=== PATIENT | male | born 2000 | race Caucasian/White ===

== ENCOUNTER 2024-12-30 17:18 | Emergency (ER) | payer BC, MEDICAID ==
[~2024-12-30] VITALS: Ht 175.3 cm; Wt 77.3 kg
[2024-12-30 17:21] VITALS: BP 113/41; PULSE 70; RESP 15; TEMP 97.6; O2SAT 100
== END 2024-12-30 19:30 | disposition home or self-care (01) ==
LOC: ER 17:19
DX: S82.291A Other fracture of shaft of right tibia, initial encounter for closed fracture (principal); X58.XXXA Exposure to other specified factors, initial encounter; Y93.89 Activity, other specified; Y92.89 Other specified places as the place of occurrence of the external cause; Y99.8 Other external cause status
CPT/HCPCS: 99281; 99282; A6449

== ENCOUNTER 2025-01-13 13:42 | Outpatient (CLI) | payer BC, MEDICAID | END 2025-01-13 23:59 | disposition home or self-care (01) | LOC: RAD 13:42 | PROVIDERS: ATTEND Nurse Practitioner Family | DX: S82.451D Displaced comminuted fracture of shaft of right fibula, subsequent encounter for closed fracture with routine healing (principal); S82.291D Other fracture of shaft of right tibia, subsequent encounter for closed fracture with routine healing; X58.XXXD Exposure to other specified factors, subsequent encounter | CPT/HCPCS: 73564; 73590 ==

== ENCOUNTER 2025-02-02 07:31 | Outpatient (CLI) | payer BC, MEDICAID | END 2025-02-02 23:59 | disposition home or self-care (01) | LOC: MRI02 07:31 | PROVIDERS: ATTEND Physician Assistant Surgical | DX: S83.411A Sprain of medial collateral ligament of right knee, initial encounter (principal); S82.209A Unspecified fracture of shaft of unspecified tibia, initial encounter for closed fracture; S80.01XA Contusion of right knee, initial encounter; M25.561 Pain in right knee; R60.0 Localized edema; X58.XXXA Exposure to other specified factors, initial encounter; Y93.9 Activity, unspecified; Y92.89 Other specified places as the place of occurrence of the external cause; Y99.8 Other external cause status | CPT/HCPCS: 73721 ==

== ENCOUNTER 2025-06-11 13:54 | Emergency (ER) | payer BC, MEDICAID ==
[~2025-06-11] VITALS: Ht 172.7 cm; Wt 77.3 kg
[2025-06-11 13:56] VITALS: BP 124/62; PULSE 75; RESP 18; TEMP 97.4; O2SAT 99
--- NOTE | 2025-06-11 14:33 | Physician Documentation ---
History of Present Illness ~ Chief Complaint: Leg Pain Stated Complaint: LEG PAIN Time Seen by MD: 14:18 Primary Medical Doctor: CECIL Source: patient Mode of Arrival: POV Exam Limitations: no limitations HPI 25-year-old male with history of tib-fib fracture in November 2024 [place] loading [place] instead of walking down the ramp decided to jump off. Patient states he he had some pain to the area that was fractured previously almost like cracking and knuckle he was able to bear weight he states the pain was not severe moderate. This occurred 3 days ago concerned that he possibly damaged the hardware and wanted to be evaluated Tetanus witin 5 years: No Medication Reconciliation Allergies: Coded Allergies: No Known Allergies (Unverified , 06/11/25) Past Medical History Past Medical History: *MUSCULOSKELETAL* Past Surgical History: orthopedic surgeries, other Alcohol Use: None Drug Use: none Lives with: Family Lives In: Home Occupation: student Review of Systems All Other Systems at this time: Reviewed and Negative Musculoskeletal: Reports: see HPI Physical Exam Vital Signs: RN Vital Signs have been reviewed: Yes, Temperature: 97.4, Source: Temporal, Heart Rate: 75, Respiratory Rate: 18, BP: 124/62, Pulse Oximetry: 99, Weight: 77.270 Oxygen Flow Rate: 0 Physical Exam General: Alert, no apparent distress. Respiratory: Lungs clear, no respiratory distress. Chest: No accessory muscle use. Cardiovascular: Regular rate and rhythm, no murmurs. Extremities: Normal range of motion, no deformity. Deformity to the right tib- fib surgical sites well healed able to bear weight CMS intact Neurologic: Oriented x4. Psychiatric: Normal mood and affect. Skin: Normal color, warm and dry. No edema, no ecchymosis. Progress Results/Orders Results/Orders Orders - SELINA GAYLE BILLIARD [employer]CH[employer]IC Tib/Fib (06/11/25 14:33) Completed Orders - SELINA GAYLE [employer]CH[employer] Tib/Fib (06/11/25 14:33) Vital Signs 06/11/25 13:56 Temp 97.4 Pulse 75 Resp 18 B/P (MAP) 124/62 Pulse Ox 99 O2 Flow Rate 0 Medical Decision Making Findings Due to previous fracture hardware placement x-ray to evaluate for any osseous or hardware abnormalities due to the less than 3 ft jump. Patient states the pains at 3/10 and aching which he states that he does have some residual pain from knee fracture in November. No obvious deformities. Departure Time of Disposition: 15:01 Disposition: 01 HOME / SELF CARE / HOMELESS Impression: Primary Impression: Lower extremity sprain Condition: Stable Discharge Instructions: RICE Therapy for Routine Care of Injuries, [id number] Additional Instructions: Your x-ray shows no acute fractures hardware still in place. Follow up with primary care and try to avoid deliberate impact that could put more force on a healing fracture Referrals: NO PRIMARY CARE PROVIDER (PCP) Education Educated: Patient Educated regarding: diagnosis, treatment, need for follow up Signature Scribe Signature: No scribe Attestation: The note accurately reflects work and decisions made by me.Selina GAGE 06/11/25 14:41 SELINA GAYLE NP Jun 11, 2025 14:33
--- NOTE | 2025-06-11 14:55 | RADIOLOGY REPORT ---
CLINICAL INDICATION: History of fracture and hardware jump with re-injury TECHNIQUE: 3 radiographic views of the right tibia and fibula were obtained. Comparison: DI TIB/FIB 2 VWS on DOS: 01/13/25 FINDINGS/IMPRESSION: There is subacute fracture deformity of the proximal to mid fibular diaphysis and mid tibial diaphysi s status post intramedullary rhianna and screw fixation of the tibia with persistent fracture lines. No A dditional new fractures are visualized No significant soft tissue edema.
== END 2025-06-11 15:14 | disposition home or self-care (01) ==
LOC: ER 13:55
DX: S83.8X1A Sprain of other specified parts of right knee, initial encounter (principal); X58.XXXA Exposure to other specified factors, initial encounter; Y93.89 Activity, other specified; Y92.89 Other specified places as the place of occurrence of the external cause; Y99.8 Other external cause status
CPT/HCPCS: 73590; 99283